=== PATIENT | male | born 1990 | race American Indian/Alaskan Native ===

== ENCOUNTER 2021-02-17 12:01 | Emergency (ER) | payer SELFPAY ==
[2021-02-17 12:09] VITALS: BP 123/69
--- NOTE | 2021-02-17 12:57 | Emergency Department Report ---
ED Rash HPI - HPI Chief Complaint: Allergic Reaction Stated Complaint: HIVES Time Seen by Provider: 02/17/21 12:49 Duration: 1 week Location: Chest, Back, Abdomen, Upper Extremities Rash Symptoms: Yes Itching, No Facial Swelling, No Tongue/Oral Swelling, No Breathing Difficulties, No Choking Sensation, No Wheezing/Dyspnea, No Peeling, No Blistering, No Fever, No Lightheaded, No Malaise, No Myalgias Severity: moderate Other History: 30-year-old -[place] male presents to the emergency room complaining of a itchy rash on his upper torso abdomen and arms for the last week. Patient denies any new foods no new pets but does admit to new detergent. Denies any pain just states that it itches a little. Patient has rub some iodine on his skin is out but his mother told him. Patient is taking nothing for the itchiness. Patient denies any past medical history. ED Review of Systems ROS: Stated complaint: HIVES Other details as noted in HPI Comment: All other systems reviewed and negative ED Past Medical Hx - Past Medical History Hx Asthma: Yes - Social History Smoking Status: Current Every Day Smoker Substance Use Type: Alcohol, Marijuana - Medications Home Medications: Home Medications Medication Instructions Recorded Confirmed Last Taken Type Cetirizine HCl [Zyrtec 10mg tab] 10 mg PO DAILY #20 tablet 02/17/21 Unknown Rx Famotidine [Pepcid] 20 mg PO BID 7 Days #14 tablet 02/17/21 Unknown Rx Prednisone [predniSONE 5 mg (6-Day 5 mg PO .TAPER #1 tab.ds.pk 02/17/21 Unknown Rx Pack, 21 Tabs)] Rash Exam - Exam General: Vital signs noted. No distress. Alert and acting appropriately. ED Course Vital Signs 02/17/21 12:09 Temperature 98.8 F Pulse Rate 85 Respiratory 18 Rate Blood Pressure 123/69 O2 Sat by Pulse 98 Oximetry ED Medical Decision Making - Medical Decision Making 30-year-old -[place] male presents to the emergency room complaining of a itchy rash on his upper torso abdomen and arms for the last week. Patient denies any new foods no new pets but does admit to new detergent. Denies any pain just states that it itches a little. Patient has rub some iodine on his skin is out but his mother told him. Patient is taking nothing for the itchiness. Patient denies any past medical history. Patient has stable vital signs in no acute distress nontoxic in appearance. Patient has been having no other complaints. Patient be discharged home on prednisone pack Zotex and Pepcid and instructed to discontinue using the detergent that has possibly irritated him. Patient also be referred to an digital media coordinator. Critical care attestation.: If time is entered above; I have spent that time in minutes in the direct care of this critically ill patient, excluding procedure time. ED Disposition Clinical Impression: Rash and nonspecific skin eruption Disposition: 01 HOME / SELF CARE / HOMELESS Is pt being admited?: No Does the pt Need Aspirin: No Condition: Stable Instructions: Rash, Adult, [id number] Additional Instructions: Take medications as prescribed. Follow up with an Pitch Gatherer. Prescriptions: Famotidine [Pepcid] 20 mg PO BID 7 Days #14 tablet Prednisone [predniSONE 5 mg (6-Day Pack, 21 Tabs)] 5 mg PO .TAPER #1 tab.ds.pk Cetirizine HCl [Zyrtec 10mg tab] 10 mg PO DAILY #20 tablet Referrals: [facility] [Provider Group] - 3-5 Days Time of Disposition: 12:57
== END 2021-02-17 13:57 | disposition home or self-care (01) ==
LOC: ED 12:01
DX: R21 Rash and other nonspecific skin eruption (principal); F17.200 Nicotine dependence, unspecified, uncomplicated; J45.909 Unspecified asthma, uncomplicated
CPT/HCPCS: 99281